=== PATIENT | female | born 2000 | race Caucasian/White ===

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

== ENCOUNTER → 2020-02-29 | Outpatient (CLI) | payer BC, OTHER | END | disposition home or self-care (01) | LOC: COVID19 10:15 | PROVIDERS: ATTEND Pediatrics | DX: J00 Acute nasopharyngitis [common cold] (principal); Z20.828 Contact with and (suspected) exposure to other viral communicable diseases ==

== ENCOUNTER 2020-06-21 13:34 | Emergency (ER) | payer BC, OTHER ==
[~2020-06-21] VITALS: Ht 152.4 cm; Wt 98.0 kg
[2020-06-21 14:13] LABS: BASO # 0.1 10*3/uL (0.0-0.1); BASO % 0.4 % (0.0-1.0); EOS # 0.1 10*3/uL (0.0-0.4); EOS % 1.1 % (1.0-4.0); HEMATOCRIT 40.2 % (37.0-47.0); LYMPH # 3.8 10*3/uL (1.3-4.4); LYMPH % 29.8 % (27.0-41.0); MEAN CELL VOLUME 81.2 fl (81.0-99.0); MEAN CORPUSCULAR HGB 24.2 pg (27.0-31.0); MEAN CORPUSCULAR HGB CONC 29.9 g/dl (33.0-37.0); MEAN PLATELET VOLUME 11.3 fl (9.6-12.3); MONO # 0.8 10*3/uL (0.1-1.0); MONO % 5.8 % (3.0-9.0); NEUT % 62.3 % (47.0-73.0); PLATELET COUNT AUTOMATED 280 10*3/uL (130-400); RED BLOOD COUNT 4.95 10*6/uL (4.10-5.10); RED CELL DISTRI WIDTH 15.2 % (0-14.5); WHITE BLOOD COUNT 12.8 10*3/uL (4.8-10.8)
[2020-06-21 14:28] LABS: ALBUMIN 3.3 gm/dl (3.1-4.5); ALKALINE PHOSPHATASE 80 U/L (45-117); BUN 16 mg/dl (7-24); CHLORIDE 106 mmol/L (98-107); CREATININE 0.84 mg/dL (0.55-1.02); POTASSIUM 4.4 mmol/L (3.5-5.1); SGOT/AST 10 IU/L (3-35); SGPT/ALT 15 U/L (12-78); SODIUM 140 mmol/L (136-145); TOTAL PROTEIN 7.8 gm/dL (6.4-8.2)
[2020-06-21] MEDS ORDERED: Meclizine25 MG PO (15:43)
== END 2020-06-21 15:47 | disposition home or self-care (01) ==
LOC: ED 13:34
PROVIDERS: Physician Assistant
DX: R42 Dizziness and giddiness (principal); Z88.8 Allergy status to other drugs, medicaments and biological substances; Z79.899 Other long term (current) drug therapy

== ENCOUNTER 2020-07-19 18:10 | Emergency (ER) | payer OTHER, BC ==
[~2020-07-19] VITALS: Ht 152.4 cm; Wt 98.0 kg
[~2020-07-19 18:10] MED LIST changes: +Meclizine25 MG PO
[2020-07-19] MEDS ORDERED: IBUPROFEN600 MG PO (23:17)
== END 2020-07-19 23:47 | disposition home or self-care (01) ==
LOC: ED 18:10
DX: S29.012A Strain of muscle and tendon of back wall of thorax, initial encounter (principal); Z88.8 Allergy status to other drugs, medicaments and biological substances; Z79.899 Other long term (current) drug therapy; V89.2XXA Person injured in unspecified motor-vehicle accident, traffic, initial encounter; Y93.89 Activity, other specified; Y92.89 Other specified places as the place of occurrence of the external cause; Y99.8 Other external cause status

== ENCOUNTER 2020-10-25 14:29 | Emergency (ER) | payer BC, OTHER ==
[~2020-10-25] VITALS: Wt 102.1 kg
[~2020-10-25 14:29] MED LIST changes: +IBUPROFEN600 MG PO
[2020-10-25] MEDS ORDERED: ZITHROMAX250 MG PO (16:37)
[2020-10-25] MEDS ORDERED: PREDNISONE20 M1 PO (16:37)
== END 2020-10-25 16:47 | disposition home or self-care (01) ==
LOC: ED 14:29
DX: J45.909 Unspecified asthma, uncomplicated (principal); Z20.822 Contact with and (suspected) exposure to COVID-19; Z88.8 Allergy status to other drugs, medicaments and biological substances; Z79.899 Other long term (current) drug therapy

== ENCOUNTER → 2020-12-12 | Outpatient (CLI) | payer BC, OTHER ==
[~2020-12-12] MED LIST changes: +ZITHROMAX250 MG PO
[2020-12-12 10:11] LABS: BASO # 0.1 10*3/uL (0.0-0.1); BASO % 0.5 % (0.0-1.0); EOS # 0.2 10*3/uL (0.0-0.4); EOS % 1.8 % (1.0-4.0); HEMATOCRIT 41.2 % (37.0-47.0); LYMPH # 3.9 10*3/uL (1.3-4.4); LYMPH % 35.1 % (27.0-41.0); MEAN CELL VOLUME 80.9 fl (81.0-99.0); MEAN CORPUSCULAR HGB 24.8 pg (27.0-31.0); MEAN CORPUSCULAR HGB CONC 30.6 g/dl (33.0-37.0); MEAN PLATELET VOLUME 11.6 fl (9.6-12.3); MONO # 0.6 10*3/uL (0.1-1.0); MONO % 5.6 % (3.0-9.0); NEUT # 6.1 10*3/uL (2.3-7.9); NEUT % 55.5 % (47.0-73.0); PLATELET COUNT AUTOMATED 265 10*3/uL (130-400); RED BLOOD COUNT 5.09 10*6/uL (4.10-5.10); RED CELL DISTRI WIDTH 14.6 % (0-14.5); WHITE BLOOD COUNT 11.1 10*3/uL (4.8-10.8)
== END | disposition home or self-care (01) ==
LOC: LAB 09:59
PROVIDERS: ATTEND Specialist
DX: J35.1 Hypertrophy of tonsils (principal)

== ENCOUNTER → 2021-09-19 | Outpatient (CLI) | payer BC, OTHER ==
[2021-09-20 21:06] LABS: AMPHETAMINE SCREEN, URINE Negative ng/mL (Cutoff=1000); BARBITURATES SCREEN, URINE Negative ng/mL (Cutoff=200); BENZODIAZEPINES SCREEN URINE Negative ng/mL (Cutoff=200); CANNABINOID SCREEN, URINE Negative ng/mL (Cutoff=20); CREATININE, UR 241.8 mg/dL (20.0-300.0); MEPERIDINE SCREEN, URINE Negative ng/mL (Cutoff=200); METHADONE SCREEN, URINE Negative ng/mL (Cutoff=300); OPIATE SCREEN, URINE Negative ng/mL (Cutoff=300); OXYCODONE SCREEN URINE Negative ng/mL (Cutoff=100); PH URINE 5.1 (4.5-8.9); PROPOXYPHENE SCREEN, URINE Negative ng/mL (Cutoff=300)
== END | disposition home or self-care (01) ==
LOC: LAB 15:01
PROVIDERS: ATTEND Nurse Practitioner
DX: Z51.81 Encounter for therapeutic drug level monitoring (principal); Z79.899 Other long term (current) drug therapy

== ENCOUNTER → 2021-09-30 | Outpatient (CLI) | payer BC, OTHER ==
[2021-10-01 06:07] LABS: HEPATITIS B SURFACE AB Reactive (.)
[2021-10-01 16:07] LABS: MUMPS ANTIBODIES, IGG 36.3 AU/mL (Immune >10.9); RUBEOLA AB IGG >300.0 AU/mL (Immune >16.4); VARICELLA-ZOSTER IGG 402 index (Immune >165)
== END | disposition home or self-care (01) ==
LOC: LAB 16:15
PROVIDERS: ATTEND Family Medicine
DX: Z02.0 Encounter for examination for admission to educational institution (principal)

== ENCOUNTER → 2021-12-25 | Outpatient (CLI) | payer BC, OTHER | LOC: LAB 14:56 | PROVIDERS: ATTEND Social Worker Clinical | DX: R53.82 Chronic fatigue, unspecified (principal) ==

== ENCOUNTER 2022-02-24 04:04 | Emergency (ER) | payer BC, OTHER ==
[~2022-02-24] VITALS: Ht 152.4 cm; Wt 101.6 kg
[~2022-02-24 04:04] MED LIST changes: -METRONIDAZOLE500 M1 PO
[2022-02-24 04:40] LABS: HEMATOCRIT 39.7 % (37.0-47.0); MANUAL DIFF REFLEX YES; MEAN CELL VOLUME 79.6 fl (81.0-99.0); MEAN CORPUSCULAR HGB 24.4 pg (27.0-31.0); MEAN CORPUSCULAR HGB CONC 30.7 g/dl (33.0-37.0); MEAN PLATELET VOLUME 11.2 fl (9.6-12.3); PLATELET COUNT AUTOMATED 297 10*3/uL (130-400); RED BLOOD COUNT 4.99 10*6/uL (4.10-5.10); RED CELL DISTRI WIDTH 15.9 % (0-14.5); WHITE BLOOD COUNT 15.4 10*3/uL (4.8-10.8)
[2022-02-24 04:55] LABS: ALKALINE PHOSPHATASE 93 U/L (46-116); BUN 9 mg/dl (9-23); CHLORIDE 104 mmol/L (98-107); CREATININE 0.89 mg/dL (0.55-1.02); LIPASE 33 U/L (12-53); POTASSIUM 3.6 mmol/L (3.4-5.1); SGPT/ALT 10 U/L (10-49); SODIUM 139 mmol/L (136-145); TOTAL PROTEIN 6.8 gm/dL (6.0-8.0)
[2022-02-24 05:03] LABS: ATYPICAL LYMPHS 1 % (0-0); PLATELET SUFFICIENCY NORMAL (NORMAL); TOTAL CELLS COUNTED 100 #CELLS
[2022-02-24 05:09] LABS: BILIRUBIN Negative (Negative); BLOOD Negative (Negative); CLARITY Cloudy (Clear); COLOR Yellow (Yellow); GLUCOSE Negative (Negative); KETONE Trace (Negative); LEUKO ESTERASE Negative (Negative); NITRITE Negative (Negative); SPECIFIC GRAVITY >= 1.030 (1.001-1.030)
[2022-02-24 05:21] LABS: EPITHELIAL CELLS 31-40
[2022-02-24] MEDS ORDERED: CIPRO500 MG PO (05:47)
[2022-02-24] MEDS ORDERED: METRONIDAZOLE500 M1 PO (05:47)
== END 2022-02-24 05:57 | disposition home or self-care (01) ==
LOC: ED 04:04
PROVIDERS: Emergency Medicine
DX: R10.30 Lower abdominal pain, unspecified (principal); Z88.8 Allergy status to other drugs, medicaments and biological substances; Z79.899 Other long term (current) drug therapy

== ENCOUNTER 2022-02-24 16:08 | Emergency (ER) | payer BC, OTHER ==
[~2022-02-24] VITALS: Wt 101.6 kg
[~2022-02-24 16:08] MED LIST changes: +METRONIDAZOLE500 M1 PO
== END 2022-02-24 22:34 | disposition home or self-care (01) ==
LOC: ED 16:08
DX: N39.0 Urinary tract infection, site not specified (principal); Z88.8 Allergy status to other drugs, medicaments and biological substances; Z79.899 Other long term (current) drug therapy

== ENCOUNTER → 2022-02-24 | Outpatient (CLI) | payer BC, OTHER ==
[~2022-02-24] MED LIST changes: +METRONIDAZOLE500 M1 PO
== END | disposition home or self-care (01) ==
LOC: US 09:35
PROVIDERS: ATTEND Emergency Medicine
DX: R10.2 Pelvic and perineal pain (principal)

== ENCOUNTER 2023-01-17 02:57 | Inpatient (IN) | payer BC, OTHER ==
[~2023-01-17] VITALS: Ht 152 cm; Wt 106.2 kg
[2023-01-17 03:10] VITALS: BP 138/72
[2023-01-17] MEDS ORDERED: ADDERALL 10 MG10 MG PO (03:15)
[2023-01-17] MEDS ORDERED: ESTARYLLA 0.251 EACH PO (03:15)
[2023-01-17] MEDS ORDERED: BUPROPION HYDR100 M3 PO (03:16)
[2023-01-17] MEDS ORDERED: ACYCLOVIR400 MG PO (03:17)
[2023-01-17 03:41] LABS: HEMATOCRIT 37.2 % (37.0-47.0); MANUAL DIFF REFLEX YES; MEAN CELL VOLUME 79.3 fl (81.0-99.0); MEAN CORPUSCULAR HGB 23.9 pg (27.0-31.0); MEAN CORPUSCULAR HGB CONC 30.1 g/dl (33.0-37.0); MEAN PLATELET VOLUME 11.9 fl (9.6-12.3); PLATELET COUNT AUTOMATED 294 10*3/uL (130-400); RED BLOOD COUNT 4.69 10*6/uL (4.10-5.10); RED CELL DISTRI WIDTH 15.7 % (0-14.5); WHITE BLOOD COUNT 23.1 10*3/uL (4.8-10.8)
[2023-01-17 03:53] LABS: ACT PARTIAL THROMBO TIME 28.1 SECONDS (20.0-32.1)
[2023-01-17 04:01] LABS: PLATELET SUFFICIENCY NORMAL (NORMAL); TOTAL CELLS COUNTED 100 #CELLS
[2023-01-17 04:02] LABS: ALKALINE PHOSPHATASE 109 U/L (46-116); BUN 5 mg/dl (9-23); BURR CELLS FEW; CHLORIDE 105 mmol/L (98-107); LIPASE 28 U/L (12-53); POTASSIUM 4.2 mmol/L (3.4-5.1); SGPT/ALT 12 U/L (5-49); TOTAL PROTEIN 7.1 gm/dL (6.0-8.0); TOXIC GRANULATION SLIGHT
[2023-01-17 04:03] LABS: POLYCHROMASIA SLIGHT
[2023-01-17 11:07] VITALS: BP 113/71
[2023-01-17 16:45] VITALS: BP 120/69
[2023-01-17 20:00] VITALS: BP 116/65
[2023-01-18] VITALS: BP 107/55
[2023-01-18 07:10] LABS: BASO # 0.1 10*3/uL (0.0-0.1); BASO % 0.3 % (0.0-1.0); EOS # 0.2 10*3/uL (0.0-0.4); EOS % 1.2 % (1.0-4.0); HEMATOCRIT 33.3 % (37.0-47.0); LYMPH # 3.5 10*3/uL (1.3-4.4); LYMPH % 22.3 % (27.0-41.0); MEAN CELL VOLUME 78.4 fl (81.0-99.0); MEAN CORPUSCULAR HGB 23.8 pg (27.0-31.0); MEAN CORPUSCULAR HGB CONC 30.3 g/dl (33.0-37.0); MEAN PLATELET VOLUME 12.2 fl (9.6-12.3); MONO % 6.3 % (3.0-9.0); NEUT # 10.8 10*3/uL (2.3-7.9); NEUT % 69.4 % (47.0-73.0); PLATELET COUNT AUTOMATED 252 10*3/uL (130-400); RED BLOOD COUNT 4.25 10*6/uL (4.10-5.10); RED CELL DISTRI WIDTH 15.7 % (0-14.5); WHITE BLOOD COUNT 15.5 10*3/uL (4.8-10.8)
[2023-01-18 07:37] LABS: CHLORIDE 110 mmol/L (98-107); POTASSIUM 3.5 mmol/L (3.4-5.1)
[2023-01-18 07:44] LABS: BUN < 5 mg/dl (9-23)
[2023-01-18 08:00] VITALS: BP 116/80
[2023-01-18 12:00] VITALS: BP 115/72
[2023-01-18 20:00] VITALS: BP 103/64
[2023-01-19] VITALS: BP 94/61
[2023-01-19 06:09] LABS: BASO # 0.1 10*3/uL (0.0-0.1); BASO % 0.6 % (0.0-1.0); EOS # 0.3 10*3/uL (0.0-0.4); EOS % 3.1 % (1.0-4.0); HEMATOCRIT 35.3 % (37.0-47.0); LYMPH # 3.5 10*3/uL (1.3-4.4); LYMPH % 34.6 % (27.0-41.0); MEAN CELL VOLUME 78.3 fl (81.0-99.0); MEAN CORPUSCULAR HGB 23.7 pg (27.0-31.0); MEAN CORPUSCULAR HGB CONC 30.3 g/dl (33.0-37.0); MEAN PLATELET VOLUME 12.3 fl (9.6-12.3); MONO # 0.6 10*3/uL (0.1-1.0); MONO % 5.9 % (3.0-9.0); NEUT # 5.7 10*3/uL (2.3-7.9); NEUT % 55.4 % (47.0-73.0); PLATELET COUNT AUTOMATED 288 10*3/uL (130-400); RED BLOOD COUNT 4.51 10*6/uL (4.10-5.10); RED CELL DISTRI WIDTH 15.6 % (0-14.5); WHITE BLOOD COUNT 10.2 10*3/uL (4.8-10.8)
[2023-01-19 08:00] VITALS: BP 127/69
[2023-01-19] MEDS ORDERED: AMOXICILLIN500 M3 PO (11:50)
[2023-01-19 12:00] VITALS: BP 101/54
== END 2023-01-19 13:05 | disposition home or self-care (01) | DRG 872 ==
LOC: ED 02:57 → 4E 04:22 → EDHOLD 04:22 → 4E 16:05
PROVIDERS: Internal Medicine; Student in an Organized Health Care Education/Training Program; ADMIT Student in an Organized Health Care Education/Training Program; ATTEND Student in an Organized Health Care Education/Training Program
DX: A41.9 Sepsis, unspecified organism (principal); E44.0 Moderate protein-calorie malnutrition; Z68.42 Body mass index [BMI] 45.0-49.9, adult; J02.0 Streptococcal pharyngitis; F17.210 Nicotine dependence, cigarettes, uncomplicated; R73.9 Hyperglycemia, unspecified; J45.20 Mild intermittent asthma, uncomplicated; E66.01 Morbid (severe) obesity due to excess calories; K21.9 Gastro-esophageal reflux disease without esophagitis; D50.9 Iron deficiency anemia, unspecified; Z88.8 Allergy status to other drugs, medicaments and biological substances; Z79.899 Other long term (current) drug therapy; Z86.010 Personal history of colon polyps; Z82.49 Family history of ischemic heart disease and other diseases of the circulatory system

== ENCOUNTER 2023-12-11 00:35 | Emergency (ER) | payer OTHER ==
[~2023-12-11] VITALS: Ht 152.4 cm; Wt 97.1 kg
[~2023-12-11 00:35] MED LIST changes: +ACYCLOVIR400 MG PO; +ADDERALL 10 MG10 MG PO; +AMOXICILLIN500 M3 PO; +BUPROPION HYDR100 M3 PO; +ESTARYLLA 0.251 EACH PO
[2023-12-11] MEDS ORDERED: Dicyclomine Hydrochloride 20 MG/10 ML OSYR PO STA (00:51)
[2023-12-11] MEDS ORDERED: Lidocaine Hydrochloride 15 ML UDC PO STA (00:51)
[2023-12-11] MEDS ORDERED: MG-AL HYDROXIDE/SIMETICONE 30 ML UDC PO STA (00:51)
[2023-12-11 01:18] LABS: HEMATOCRIT 35.6 % (37.0-47.0); MEAN CELL VOLUME 78.1 fl (81.0-99.0); MEAN CORPUSCULAR HGB CONC 29.5 g/dl (33.0-37.0); MEAN PLATELET VOLUME 11.8 fl (9.6-12.3); PLATELET COUNT AUTOMATED 328 10*3/uL (130-400); RED BLOOD COUNT 4.56 10*6/uL (4.10-5.10); RED CELL DISTRI WIDTH 17.2 % (0-14.5); WHITE BLOOD COUNT 12.5 10*3/uL (4.8-10.8)
[2023-12-11 01:21] LABS: MANUAL DIFF REFLEX YES
[2023-12-11 01:39] LABS: ACANTHOCYTES FEW; BASOPHILS 1 % (0-1); BUN 8 mg/dl (9-23); CHLORIDE 105 mmol/L (98-107); OVALOCYTES FEW; PLATELET SUFFICIENCY NORMAL (NORMAL); POTASSIUM 3.6 mmol/L (3.4-5.1); TOTAL CELLS COUNTED 100 #CELLS
[2023-12-11 01:40] LABS: SCHISTOCYTES FEW
[2023-12-11] MEDS ORDERED: Ketorolac Tromethamine 60 MG/2 ML VIAL IM ONE (03:45)
[2023-12-11] MEDS ORDERED: MELOXICAM15 MG PO (04:25)
[2023-12-11] MEDS ORDERED: HEARTBURN RELIE20 MG PO (04:25)
== END 2023-12-11 04:36 | disposition home or self-care (01) ==
LOC: ED 00:35
PROVIDERS: Internal Medicine
DX: M94.0 Chondrocostal junction syndrome [Tietze] (principal); K21.9 Gastro-esophageal reflux disease without esophagitis; J45.909 Unspecified asthma, uncomplicated; D64.9 Anemia, unspecified; F90.9 Attention-deficit hyperactivity disorder, unspecified type; Z88.8 Allergy status to other drugs, medicaments and biological substances; Z98.890 Other specified postprocedural states

== ENCOUNTER → 2024-12-30 | Outpatient (CLI) | payer OTHER ==
[~2024-12-30] MED LIST changes: +HEARTBURN RELIE20 MG PO; +MELOXICAM15 MG PO
[2024-12-30 08:22] LABS: BASO # 0.1 10*3/uL (0.0-0.1); BASO % 0.8 % (0.0-1.0); EOS # 0.2 10*3/uL (0.0-0.4); EOS % 1.9 % (1.0-4.0); MEAN CELL VOLUME 78.1 fl (81.0-99.0); MEAN CORPUSCULAR HGB 23.3 pg (27.0-31.0); MEAN PLATELET VOLUME 11.3 fl (9.6-12.3); MONO # 0.4 10*3/uL (0.1-1.0); MONO % 5.0 % (3.0-9.0); NEUT # 4.4 10*3/uL (2.3-7.9); NEUT % 52.4 % (47.0-73.0); NUCLEATED RED BLOOD CELL 0.0 % (0.0-0.0); NUCLEATED RED BLOOD CELL 0.0 10*3/uL (0.0-0.0); PLATELET COUNT AUTOMATED 332 10*3/uL (130-400); RED CELL DISTRI WIDTH 15.7 % (0-14.5)
[2024-12-30 08:56] LABS: BUN 10 mg/dl (9-23); T3 UPTAKE 19.3 % (22.4-36.7); THYROXINE (T4) TOTAL 10.2 ug/dl (4.5-10.9); VITAMIN D, 25-HYDROXY 26.6 ng/mL (30-100)
== END | disposition home or self-care (01) ==
LOC: LAB 07:36
DX: Z51.81 Encounter for therapeutic drug level monitoring (principal); Z79.899 Other long term (current) drug therapy